=== PATIENT | female | born 1975 | race African-American/Black ===

== ENCOUNTER → 2025-03-01 14:55 | Outpatient (REF) | payer OTHER, SELFPAY | LOC: HWRCS 14:55 | PROVIDERS: ATTENDING PHYSICIAN Physician Assistant; FAMILY PHYSICIAN Family Medicine | DX: R00.2 Palpitations (principal); R05.1 Acute cough | CPT/HCPCS: 71046; 93306 ==

== ENCOUNTER → 2025-08-21 08:20 | Outpatient (REF) | payer OTHER, SELFPAY | LOC: HWRAD 08:20 | PROVIDERS: ATTENDING PHYSICIAN Physician Assistant | DX: R00.2 Palpitations (principal); R03.0 Elevated blood-pressure reading, without diagnosis of hypertension; K21.9 Gastro-esophageal reflux disease without esophagitis | CPT/HCPCS: 71046; 78452; 93017; A9500 ==

== ENCOUNTER → 2025-09-29 08:22 | Outpatient (REF) | payer OTHER, SELFPAY | LOC: HWRAD 08:22 | PROVIDERS: ATTENDING PHYSICIAN Nurse Practitioner Obstetrics & Gynecology; FAMILY PHYSICIAN Physician Assistant | DX: T83.32XA Displacement of intrauterine contraceptive device, initial encounter (principal) | CPT/HCPCS: 76830; 76856 ==